=== PATIENT | male | born 1975 | race Caucasian/White ===

== ENCOUNTER 2016-10-18 01:56 | Emergency (ER) | payer OTHER ==
--- NOTE | 2016-10-18 05:49 | ED CLINICAL REPORT ---
Clinical Report - Physicians/Mid Levels [facility] [address] [place] [address] 10/18/2016 1:56 Patient: GRISELDA ALONZO Time Seen: 225 AM. Historian- patient and police. CPT: ER phys charges level 4 (#[id number]). HISTORY OF PRESENT ILLNESS Chief Complaint: Clear to book. ( Brought in by police after picked up for DUI. Pt has no injuries but is intoxicated.). This started just prior to arrival and is still present. At its maximum, severity described as moderate. When seen in the E.D., severity described as moderate. Modifying factors. Not worsened by anything. Not relieved by anything. No current or associated symptoms. Similar symptoms previously: Recent medical care: Not recently seen/assessed. REVIEW OF SYSTEMS No fever, cough, difficulty breathing, chest pain or abdominal pain. No nausea, vomiting, diarrhea, black stools or bloody stools. No chills, skin rash, headache or blackouts. He has had difficulty with ambulation. All systems otherwise negative, except as recorded above. PAST HISTORY Alcoholism: Has been to [place] detox in the past. Denies other PMH. Additional Surgeries: no known surgeries. Medications: Gabapentin Oral. Allergies: Sulfa Antibiotics. SOCIAL HISTORY Heavy tobacco smoker (cigarette)- 1 pack per day. Regular heavy alcohol use. ADDITIONAL NOTES The nursing notes have been reviewed. PHYSICAL EXAM Vital Signs: 10/18/2016 01:55 BP: 144/115. HR: 120. RR: 16. O2 saturation: 94%. Temp: 98.8 F. Pain level now: 9/10. Appearance: Alert. (AOB). Eyes: Eyes normal inspection. ENT: Pharynx normal. Neck: Normal inspection. CVS: Normal heart rate and rhythm. Heart sounds normal. Pulses normal. Respiratory: No respiratory distress. Breath sounds normal. Chest nontender. Neuro: Oriented X 3. No motor deficit. No sensory deficit. (Ataxia). LABS, X-RAYS, AND EKG Laboratory Tests: CBC w Diff: (CIRILO: 10/18/2016 02:30) ( MsgRcvd 10/18/2016 02:51) Final results Test Result Flag Units (Reference) WHITE BLOOD COUNT 5.4 K/uL (4.5-11.5) RED BLOOD COUNT 5.24 M/uL (4.50-5.90) HEMOGLOBIN 15.9 gm/dL (13.5-17.5) HEMATOCRIT 47.4 % (41.0-53.0) MEAN CELL VOLUME 91 fL (80-100) MEAN CORPUSCULAR HGB 30 pg (26-34) MEAN CORPUSCULAR HGB CONC 34 g/dL (31-37) RED CELL DISTRIBUTION WIDTH 13.6 % (11.6-14.8) PLATELET COUNT 87 L K/uL (150-400) NEUTROPHIL % 70.6 % (50-75) LYMPH % 22.1 L % (25-40) MONO % 6.5 % (3-14) EOSINOPHIL % 0.5 % (0-4) BASOPHIL % 0.3 % (0-2) CHEM 13 PANEL: (CIRILO: 10/18/2016 02:30) ( MsgRcvd 10/18/2016 03:05) Final results Test Result Flag Units (Reference) GLUCOSE 91 mg/dL (70-110) BUN 4 L mg/dL (7-18) CREATININE 0.8 mg/dL (0.6-1.3) Estimated GFR >60 mL/min Estimated GFR- >60 mL/min Note: Persistent reduction over 3 months in eGFR<60 mL/min/1.73 m2 defines CKD. Patients with eGFR values>=60 mL/min/1.73 m2 may also have CKD if evidence ofpersistent proteinuria. Additional information may be foundat www.kidney.org. SODIUM 134 L mmol/L (136-145) POTASSIUM 3.0 L mmol/L (3.5-5.1) CHLORIDE 94 L mmol/L (98-107) CARBON DIOXIDE 27 mmol/L (21-32) CALCIUM 9.1 mg/dL (8.5-10.1) TOTAL PROTEIN 7.9 g/dL (6.4-8.2) ALBUMIN 4.2 g/dL (3.3-5.0) BILIRUBIN, TOTAL 0.8 mg/dL (0.0-1.0) ALKALINE PHOSPHATASE 108 U/L (46-116) AST (SGOT) 122 H U/L (15-37) ALT (SGPT) 252 H U/L (12-78) MAGNESIUM 1.4 L mg/dL (1.8-2.4) CPK 223 U/L (24-260) TROPONIN I <0.05 ng/mL (0.00-1.5) TROPONIN REFERENCE RANGE:<0.1 NEGATIVE0.1-1.5 INDETERMINANT>1.5 POSITIVE Ethyl Alcohol: (CIRILO: 10/18/2016 02:30) ( MsgRcvd 10/18/2016 03:02) Final results Test Result Flag Units (Reference) ETHYL ALCOHOL 279 H mg/dL (3-10) . PROGRESS AND PROCEDURES Course of Care: banana bag 1 liter with 100 mg thiamine Magnesium 2g IV KCL 40 meq po Pt alcohol level 279 but pt alert and oriented times 3. Appears to have tolerance. Has some ataxia but not drammatic. Patient/family counseled. Disposition: Discharged. Condition: stable. CLINICAL IMPRESSION Alcohol intoxication with potential for withdrawal. Chronic alcoholism Hypokalemia Hypomagnesemia. INSTRUCTIONS (You are medically cleared to book into assisted. Wear clonidine patch until withdrawal better. It is good for a week.). Warnings: Further evaluation is necessary. Your Current Medications: CONTINUE TAKING THE FOLLOWING MEDICATIONS: Gabapentin Oral. Prescription Medications: Ativan 1 mg: take 1-2 orally every 4 hours as needed. Dispense twenty (20). No refill. Substitution is permissible. (for withdrawal symptoms.) KCL 20 meq q day for 3 days. Follow-up: Follow up with your doctor in one week. Call for an appointment. Understanding of the discharge instructions verbalized by patient. Discharge instructions reviewed (Police). (Electronically signed by Osmin Sabillon MD 10/22/2016 0:21)
--- NOTE | 2016-10-18 05:49 | ED ORDER SUMMARY ---
..... Patient: GRISELDA ALONZO OrderSheet [facility] VisitID: [id number] [address] [place] [address] 41y, M Registration Date/Time: 10/18/2016 ORDER SHEET Weight: 83.9 kg (stated) Allergies: Sulfa Antibiotics GENERAL ORDERS: Ethyl Alcohol Urgent (02:20 10/18/2016 Suyapa Cadet verbal order read back to Vira TENORIO) (Ack 2:28 Vinayak) (3:36 Clares R.N.) Cardiac Panel Stat (02:29 10/18/2016 Vira TENORIO) (Ack 2:39 Vinayak) (3:36 Qing R.N.) Magnesium Urgent (03:37 10/18/2016 Qing Pandya.N. verbal order read back to Vira TENORIO) (Cancelled: Wrong Order3:38 Qnig R.N.) MEDICATION ORDERS: KCl PO 40 meq (NOW) (03:42 10/18/2016 Vira TENORIO) (4:11 Qing R.N.) Clonidine Topical 0.2 mg (NOW) (03:42 10/18/2016 Vira TENORIO) (4:11 Qing R.N.) IV FLUIDS: IV NS with Normal Saline 1 Liter, Multivitamin Concentrate Intravenous 1 amp/L, Thiamine HCl 100 mg/L: initial bolus 1000 mL (1000 mL/hr), then none - for X1 (NOW); Routine (02:29 10/18/2016 Vira TENORIO) (3:36 DDdaniels R.N.) Magnesium Sulfate IV 2 gm/50mL (NOW, over 1 hour) (03:38 10/18/2016 Qing GuadalupeNAngela verbal order read back to Vira TENORIO) (3:39 Qing R.N.) ORDER SHEET NOTES: [Electronically signed by Balbir Willis R.N. (06:54 10/18/2016)] [Electronically signed by Osmin Sabillon MD (00:21 10/22/2016)] [Electronically locked/signed by Balbir Willis R.N. (06:54 10/18/2016)]
--- NOTE | 2016-10-18 05:49 | ED NURSING NOTES ---
Clinical Report - Nurses [facility] [address] [place] [address] 10/18/2016 1:56 [id number] Triage time 01:55 Oct 18 2016. Acuity: LEVEL 3. Chief Complaint: (CTB). Alert. KEN COMA SCORE: Ken Coma Scale: 15- eyes open spontaneously (4); best verbal response- oriented x 4 (5); best motor response- obeys commands (6). --04:12 Balbir Willis R.N. 01:55 10/18/16. BP: 144/115. HR: 120. RR: 16. O2 saturation: 94% on room air. Temp: 98.8 F (oral). Pain level now: 9/10. Additional comments: Bilat lower calf pain. --04:12 Balbir Willis R.N. Weight: 83.9 kg stated. Height/Length: 72 inches Per Patient. BMI: 25.1. --01:58 Balbir Willis R.N. Medications Gabapentin Oral. --01:58 Balbir Willis R.N. Medication/allergy information source: the patient. --04:12 Balbir Willis R.N. Allergies Sulfa Antibiotics. --01:58 Balbir Willis R.N. History Arrived by private vehicle. Historian: patient. Accompanied by (POLICE CUSTODY). ( [facility]). This started just prior to arrival and yesterday. 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 PAST MEDICAL HX: Immunizations: status is unknown. SURGERY HX: No history of previous surgery. SOCIAL HX: Heavy tobacco smoker (cigarette)- less than 1 pack per day. Alcohol use; consumes three liquor bottles. No drug use. No infectious disease exposure. ABUSE ASSESSMENT: No report of abuse. FALL RISK ASSESSMENT: Fall risk assessment completed. No fall risk identified. NUTRITIONAL RISK ASSESSMENT: The nutritional risk assessment revealed no deficiencies. FUNCTIONAL ASSESSMENT: Functional assessment: no impairments noted. LEARNING NEEDS ASSESSMENT: The learning needs assessment revealed no barriers. SKIN INTEGRITY ASSESSMENT: Skin integrity risk assessment completed. No skin integrity risk identified. --04:12 Balbir Willis R.N. PROBLEMS: DT's. --02:00 Balbir Willis R.N. Interventions ID band on patient. To treatment room. --04:12 Balbir Willis R.N. PHYSICAL ASSESSMENT Ambulatory to room. GENERAL / NEURO / PSYCH: Alert. Oriented X 4. HEENT: No facial asymmetry noted. RESPIRATORY: Respirations not labored. CVS: Cardiac rhythm: (Tachycardia). GI / : Abdomen soft. SKIN: Skin is warm and dry. Normal skin turgor. --02:08 Balbir Willis R.N. 04:12 10/18/16. BP: 125/72 (regular adult cuff) taken while sitting. --04:13 Rashel Triana R.N. NURSING PROGRESS NOTES Reassurance given. Patient identifiers checked. Call light placed in reach. Side rails up. Bed placed in lowest position. Brakes of bed on. Patient ready for evaluation- chart flagged and ED physician notified. --02:08 Balbir Willis R.N. 03:36 10/18/2016 Site #1 started via IV in the left antecubital space with an 20g angiocath; one attempt. Blood drawn: rainbow set. Labeled in the presence of the patient and sent to the lab. Saline lock flushed with saline. --03:36 Rashel Triana R.N. 03:36 10/18/2016 Started bag #1 1000 mL IV Fluids IV NS (Saline); at 1000 mL/hr over 1 hour(s) via site #1 via IV pump. Allergies verified and confirmed 5 rights. IV patency established site checked: no pain, redness, or swelling flushed thoroughly pre- and post-medication administration. --03:36 Rashel Triana R.N. 03:39 10/18/2016 Magnesium Sulfate (Magnesium Sulfate in D5W) IVP 2 gm given over 1 hour(s) via site #1. Allergies verified and confirmed 5 rights. IV patency established. IV site checked: no pain, redness, or swelling. IV flushed thoroughly pre- and post-medication administration. --03:39 Rashel Triana R.N. 04:01 10/18/2016 KCL (Potassium Chloride ER) PO Tablets 40 meq given. Allergies verified and confirmed 5 rights. --04:11 Rashel Triana R.N. 04:11 10/18/2016 Clonidine Topical Patch/Pad 0.2 mg. Applied to the left upper arm. Allergies verified and confirmed 5 rights. --04:11 Rashel Triana R.N. 05:00 10/18/2016 IV Fluids IV NS Discontinued: bag #1 infused upon transfer. Total amount infused: 1000 mL. IV patency established. IV site checked: no pain, redness, or swelling. IV flushed thoroughly. --06:35 Balbir Willis R.N. 05:00. ( Magnesium 2 Gm IVPB infused/completed.). --06:38 Balbir Willis R.N. DISPOSITION / DISCHARGE 05:20 10/18/16. BP: 136/67. HR: 88. RR: 16. O2 saturation: 95% on room air. Temp: 98.6 F (oral). Pain level now: 5/10. Additional comments: Bilat calf pain. --06:13 Balbir Willis R.N. Departure time: 0525. --06:13 Balbir Willis R.N. 05:25. Condition at departure: improved. No learning barriers present. Discharge instructions provided and reviewed with the patient. Reviewed medication(s) (prescription given to police investigator). Reviewed referral to family practice for followup. Patient verbalized understanding. Written instructions provided in Guinean. The patient was discharged by the physician. He was accompanied by spouse and discharged to police department facility. He left the Emergency Department ambulatory and via police department vehicle. Driving (police). --06:16 Balbir Willis R.N. Locked/Released at 10/18/2016 6:54 by Balbir Willis R.N.
--- NOTE | 2016-10-18 05:49 | ED ORDER SUMMARY ---
..... Patient: GRISELDA ALONZO OrderSheet [facility] VisitID: [id number] [address] [place] [address] 41y, M Registration Date/Time: 10/18/2016 ORDER SHEET Weight: 83.9 kg (stated) Allergies: Sulfa Antibiotics GENERAL ORDERS: Ethyl Alcohol Urgent (02:20 10/18/2016 Suyapa Cadet verbal order read back to Vira TENORIO) (Ack 2:28 Vinayak) (3:36 Clares R.N.) Cardiac Panel Stat (02:29 10/18/2016 Vira TENORIO) (Ack 2:39 Vinayak) (3:36 Qing R.N.) Magnesium Urgent (03:37 10/18/2016 Qing Pandya.N. verbal order read back to Vira TENORIO) (Cancelled: Wrong Order3:38 Qing R.N.) MEDICATION ORDERS: KCl PO 40 meq (NOW) (03:42 10/18/2016 iVra TENORIO) (4:11 Qing R.N.) Clonidine Topical 0.2 mg (NOW) (03:42 10/18/2016 Vira TENORIO) (4:11 Qing R.N.) IV FLUIDS: IV NS with Normal Saline 1 Liter, Multivitamin Concentrate Intravenous 1 amp/L, Thiamine HCl 100 mg/L: initial bolus 1000 mL (1000 mL/hr), then none - for X1 (NOW); Routine (02:29 10/18/2016 Vira TENORIO) (3:36 DDdaniels R.N.) Magnesium Sulfate IV 2 gm/50mL (NOW, over 1 hour) (03:38 10/18/2016 Qing GuadalupeNAngela verbal order read back to Vira TENORIO) (3:39 Qing R.N.) ORDER SHEET NOTES: [Electronically signed by Balbir Willis R.N. (06:54 10/18/2016)] [Electronically signed by Osmin Sabillon MD (00:21 10/22/2016)] [Electronically locked/signed by Balbir Willis R.N. (06:54 10/18/2016)]
--- NOTE | 2016-10-18 05:49 | ED CLINICAL REPORT ---
Clinical Report - Physicians/Mid Levels [facility] [address] [place] [address] 10/18/2016 1:56 Patient: GRISELDA ALONZO Time Seen: 225 AM. Historian- patient and police. CPT: ER phys charges level 4 (#[id number]). HISTORY OF PRESENT ILLNESS Chief Complaint: Clear to book. ( Brought in by police after picked up for DUI. Pt has no injuries but is intoxicated.). This started just prior to arrival and is still present. At its maximum, severity described as moderate. When seen in the E.D., severity described as moderate. Modifying factors. Not worsened by anything. Not relieved by anything. No current or associated symptoms. Similar symptoms previously: Recent medical care: Not recently seen/assessed. REVIEW OF SYSTEMS No fever, cough, difficulty breathing, chest pain or abdominal pain. No nausea, vomiting, diarrhea, black stools or bloody stools. No chills, skin rash, headache or blackouts. He has had difficulty with ambulation. All systems otherwise negative, except as recorded above. PAST HISTORY Alcoholism: Has been to [place] detox in the past. Denies other PMH. Additional Surgeries: no known surgeries. Medications: Gabapentin Oral. Allergies: Sulfa Antibiotics. SOCIAL HISTORY Heavy tobacco smoker (cigarette)- 1 pack per day. Regular heavy alcohol use. ADDITIONAL NOTES The nursing notes have been reviewed. PHYSICAL EXAM Vital Signs: 10/18/2016 01:55 BP: 144/115. HR: 120. RR: 16. O2 saturation: 94%. Temp: 98.8 F. Pain level now: 9/10. Appearance: Alert. (AOB). Eyes: Eyes normal inspection. ENT: Pharynx normal. Neck: Normal inspection. CVS: Normal heart rate and rhythm. Heart sounds normal. Pulses normal. Respiratory: No respiratory distress. Breath sounds normal. Chest nontender. Neuro: Oriented X 3. No motor deficit. No sensory deficit. (Ataxia). LABS, X-RAYS, AND EKG Laboratory Tests: CBC w Diff: (CIRILO: 10/18/2016 02:30) ( MsgRcvd 10/18/2016 02:51) Final results Test Result Flag Units (Reference) WHITE BLOOD COUNT 5.4 K/uL (4.5-11.5) RED BLOOD COUNT 5.24 M/uL (4.50-5.90) HEMOGLOBIN 15.9 gm/dL (13.5-17.5) HEMATOCRIT 47.4 % (41.0-53.0) MEAN CELL VOLUME 91 fL (80-100) MEAN CORPUSCULAR HGB 30 pg (26-34) MEAN CORPUSCULAR HGB CONC 34 g/dL (31-37) RED CELL DISTRIBUTION WIDTH 13.6 % (11.6-14.8) PLATELET COUNT 87 L K/uL (150-400) NEUTROPHIL % 70.6 % (50-75) LYMPH % 22.1 L % (25-40) MONO % 6.5 % (3-14) EOSINOPHIL % 0.5 % (0-4) BASOPHIL % 0.3 % (0-2) CHEM 13 PANEL: (CIRILO: 10/18/2016 02:30) ( MsgRcvd 10/18/2016 03:05) Final results Test Result Flag Units (Reference) GLUCOSE 91 mg/dL (70-110) BUN 4 L mg/dL (7-18) CREATININE 0.8 mg/dL (0.6-1.3) Estimated GFR >60 mL/min Estimated GFR- >60 mL/min Note: Persistent reduction over 3 months in eGFR<60 mL/min/1.73 m2 defines CKD. Patients with eGFR values>=60 mL/min/1.73 m2 may also have CKD if evidence ofpersistent proteinuria. Additional information may be foundat www.kidney.org. SODIUM 134 L mmol/L (136-145) POTASSIUM 3.0 L mmol/L (3.5-5.1) CHLORIDE 94 L mmol/L (98-107) CARBON DIOXIDE 27 mmol/L (21-32) CALCIUM 9.1 mg/dL (8.5-10.1) TOTAL PROTEIN 7.9 g/dL (6.4-8.2) ALBUMIN 4.2 g/dL (3.3-5.0) BILIRUBIN, TOTAL 0.8 mg/dL (0.0-1.0) ALKALINE PHOSPHATASE 108 U/L (46-116) AST (SGOT) 122 H U/L (15-37) ALT (SGPT) 252 H U/L (12-78) MAGNESIUM 1.4 L mg/dL (1.8-2.4) CPK 223 U/L (24-260) TROPONIN I <0.05 ng/mL (0.00-1.5) TROPONIN REFERENCE RANGE:<0.1 NEGATIVE0.1-1.5 INDETERMINANT>1.5 POSITIVE Ethyl Alcohol: (CIRILO: 10/18/2016 02:30) ( MsgRcvd 10/18/2016 03:02) Final results Test Result Flag Units (Reference) ETHYL ALCOHOL 279 H mg/dL (3-10) . PROGRESS AND PROCEDURES Course of Care: banana bag 1 liter with 100 mg thiamine Magnesium 2g IV KCL 40 meq po Pt alcohol level 279 but pt alert and oriented times 3. Appears to have tolerance. Has some ataxia but not drammatic. Patient/family counseled. Disposition: Discharged. Condition: stable. CLINICAL IMPRESSION Alcohol intoxication with potential for withdrawal. Chronic alcoholism Hypokalemia Hypomagnesemia. INSTRUCTIONS (You are medically cleared to book into skilled nursing. Wear clonidine patch until withdrawal better. It is good for a week.). Warnings: Further evaluation is necessary. Your Current Medications: CONTINUE TAKING THE FOLLOWING MEDICATIONS: Gabapentin Oral. Prescription Medications: Ativan 1 mg: take 1-2 orally every 4 hours as needed. Dispense twenty (20). No refill. Substitution is permissible. (for withdrawal symptoms.) KCL 20 meq q day for 3 days. Follow-up: Follow up with your doctor in one week. Call for an appointment. Understanding of the discharge instructions verbalized by patient. Discharge instructions reviewed (Police). (Electronically signed by Osmin Sabillon MD 10/22/2016 0:21)
--- NOTE | 2016-10-18 05:49 | ED NURSING NOTES ---
Clinical Report - Nurses [facility] [address] [place] [address] 10/18/2016 1:56 [id number] Triage time 01:55 Oct 18 2016. Acuity: LEVEL 3. Chief Complaint: (CTB). Alert. KEN COMA SCORE: Ken Coma Scale: 15- eyes open spontaneously (4); best verbal response- oriented x 4 (5); best motor response- obeys commands (6). --04:12 Balbir Willis R.N. 01:55 10/18/16. BP: 144/115. HR: 120. RR: 16. O2 saturation: 94% on room air. Temp: 98.8 F (oral). Pain level now: 9/10. Additional comments: Bilat lower calf pain. --04:12 Balbir Willis R.N. Weight: 83.9 kg stated. Height/Length: 72 inches Per Patient. BMI: 25.1. --01:58 Balbir Willis R.N. Medications Gabapentin Oral. --01:58 Balbir Willis R.N. Medication/allergy information source: the patient. --04:12 Balbir Willis R.N. Allergies Sulfa Antibiotics. --01:58 Balbir Willis R.N. History Arrived by private vehicle. Historian: patient. Accompanied by (POLICE CUSTODY). ( [facility]). This started just prior to arrival and yesterday. 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 PAST MEDICAL HX: Immunizations: status is unknown. SURGERY HX: No history of previous surgery. SOCIAL HX: Heavy tobacco smoker (cigarette)- less than 1 pack per day. Alcohol use; consumes three liquor bottles. No drug use. No infectious disease exposure. ABUSE ASSESSMENT: No report of abuse. FALL RISK ASSESSMENT: Fall risk assessment completed. No fall risk identified. NUTRITIONAL RISK ASSESSMENT: The nutritional risk assessment revealed no deficiencies. FUNCTIONAL ASSESSMENT: Functional assessment: no impairments noted. LEARNING NEEDS ASSESSMENT: The learning needs assessment revealed no barriers. SKIN INTEGRITY ASSESSMENT: Skin integrity risk assessment completed. No skin integrity risk identified. --04:12 Balbir Willis R.N. PROBLEMS: DT's. --02:00 Balbir Willis R.N. Interventions ID band on patient. To treatment room. --04:12 Balbir Willis R.N. PHYSICAL ASSESSMENT Ambulatory to room. GENERAL / NEURO / PSYCH: Alert. Oriented X 4. HEENT: No facial asymmetry noted. RESPIRATORY: Respirations not labored. CVS: Cardiac rhythm: (Tachycardia). GI / : Abdomen soft. SKIN: Skin is warm and dry. Normal skin turgor. --02:08 Balbir Willis R.N. 04:12 10/18/16. BP: 125/72 (regular adult cuff) taken while sitting. --04:13 Rashel Triana R.N. NURSING PROGRESS NOTES Reassurance given. Patient identifiers checked. Call light placed in reach. Side rails up. Bed placed in lowest position. Brakes of bed on. Patient ready for evaluation- chart flagged and ED physician notified. --02:08 Balbir Willis R.N. 03:36 10/18/2016 Site #1 started via IV in the left antecubital space with an 20g angiocath; one attempt. Blood drawn: rainbow set. Labeled in the presence of the patient and sent to the lab. Saline lock flushed with saline. --03:36 Rashel Triana R.N. 03:36 10/18/2016 Started bag #1 1000 mL IV Fluids IV NS (Saline); at 1000 mL/hr over 1 hour(s) via site #1 via IV pump. Allergies verified and confirmed 5 rights. IV patency established site checked: no pain, redness, or swelling flushed thoroughly pre- and post-medication administration. --03:36 Rashel Triana R.N. 03:39 10/18/2016 Magnesium Sulfate (Magnesium Sulfate in D5W) IVP 2 gm given over 1 hour(s) via site #1. Allergies verified and confirmed 5 rights. IV patency established. IV site checked: no pain, redness, or swelling. IV flushed thoroughly pre- and post-medication administration. --03:39 Rashel Triana R.N. 04:01 10/18/2016 KCL (Potassium Chloride ER) PO Tablets 40 meq given. Allergies verified and confirmed 5 rights. --04:11 Rashel Triana R.N. 04:11 10/18/2016 Clonidine Topical Patch/Pad 0.2 mg. Applied to the left upper arm. Allergies verified and confirmed 5 rights. --04:11 Rashel Triana R.N. 05:00 10/18/2016 IV Fluids IV NS Discontinued: bag #1 infused upon transfer. Total amount infused: 1000 mL. IV patency established. IV site checked: no pain, redness, or swelling. IV flushed thoroughly. --06:35 Balbir Willis R.N. 05:00. ( Magnesium 2 Gm IVPB infused/completed.). --06:38 Balbir Willis R.N. DISPOSITION / DISCHARGE 05:20 10/18/16. BP: 136/67. HR: 88. RR: 16. O2 saturation: 95% on room air. Temp: 98.6 F (oral). Pain level now: 5/10. Additional comments: Bilat calf pain. --06:13 Balbir Willis R.N. Departure time: 0525. --06:13 Balbir Willis R.N. 05:25. Condition at departure: improved. No learning barriers present. Discharge instructions provided and reviewed with the patient. Reviewed medication(s) (prescription given to [place] police lieutenant). Reviewed referral to family practice for followup. Patient verbalized understanding. Written instructions provided in Ecuadorean. The patient was discharged by the physician. He was accompanied by spouse and discharged to police department facility. He left the Emergency Department ambulatory and via police department vehicle. Driving (police). --06:16 Balbir Willis R.N. Locked/Released at 10/18/2016 6:54 by Balbir Willis R.N.
--- NOTE | 2016-10-22 00:21 | ED MAR SUMMARY ---
..... Medication Administration Record [facility] [address] [place] [address] Patient: GRISELDA ALONZO Visit ID: [id number] 41y, M Weight: 83.9 kg Height/Length: 72 in BMI: 25.1 ALLERGIES: Sulfa Antibiotics Start 03:36 10/18/2016 Rashel Triana R.N., Stop 05:00 10/18/2016 Balbir Willis R.N. Medication Administered: IV NS (SALINE), Dose: IV Fluids over 1 hour(s), Rate: 1000 mL/hr, Dispensed: 1000 mL bag, Site: #1 left AC. Medication Ordered: IV NS with Normal Saline 1 Liter, Multivitamin Concentrate Intravenous 1 amp/L, Thiamine HCl 100 mg/L: initial bolus 1000 mL (1000 mL/hr), then none - for X1 (NOW); Routine. Given 03:39 10/18/2016 Rashel Triana R.N. Medication Administered: MAGNESIUM SULFATE [IVP] (MAGNESIUM SULFATE IN D5W), Dose: 2 gm IVP over 1 hour(s), Site: #1 left AC. Medication Ordered: Magnesium Sulfate IV 2 gm/50mL (NOW, over 1 hour). Given 04:01 10/18/2016 Rashel Triana R.N. Medication Administered: KCL [PO] (POTASSIUM CHLORIDE ER), Dose: 40 meq Tablets PO. Medication Ordered: KCl PO 40 meq (NOW). Given 04:11 10/18/2016 Rashel Triana R.N. Medication Administered: CLONIDINE [TOPICAL], Dose: 0.2 mg Patch/Pad Topical. Medication Ordered: Clonidine Topical 0.2 mg (NOW).
--- NOTE | 2016-10-22 00:21 | ED MAR SUMMARY ---
..... Medication Administration Record [facility] [address] [place] [address] Patient: GRISELDA ALONZO Visit ID: [id number] 41y, M Weight: 83.9 kg Height/Length: 72 in BMI: 25.1 ALLERGIES: Sulfa Antibiotics Start 03:36 10/18/2016 Rashel Triana R.N., Stop 05:00 10/18/2016 Balbir Willis R.N. Medication Administered: IV NS (SALINE), Dose: IV Fluids over 1 hour(s), Rate: 1000 mL/hr, Dispensed: 1000 mL bag, Site: #1 left AC. Medication Ordered: IV NS with Normal Saline 1 Liter, Multivitamin Concentrate Intravenous 1 amp/L, Thiamine HCl 100 mg/L: initial bolus 1000 mL (1000 mL/hr), then none - for X1 (NOW); Routine. Given 03:39 10/18/2016 Rashel Triana R.N. Medication Administered: MAGNESIUM SULFATE [IVP] (MAGNESIUM SULFATE IN D5W), Dose: 2 gm IVP over 1 hour(s), Site: #1 left AC. Medication Ordered: Magnesium Sulfate IV 2 gm/50mL (NOW, over 1 hour). Given 04:01 10/18/2016 Rashel Triana R.N. Medication Administered: KCL [PO] (POTASSIUM CHLORIDE ER), Dose: 40 meq Tablets PO. Medication Ordered: KCl PO 40 meq (NOW). Given 04:11 10/18/2016 Rashel Triana R.N. Medication Administered: CLONIDINE [TOPICAL], Dose: 0.2 mg Patch/Pad Topical. Medication Ordered: Clonidine Topical 0.2 mg (NOW).
--- NOTE | 2016-10-22 00:21 | ED DISCHARGE INSTRUCTIONS ---
Patient: GRISELDA ALONZO General Instructions [facility] VisitID: [id number] [address] [place] [address] 41y, M Registration Date/Time: 10/18/2016 Alcohol intoxication with potential for withdrawal. Chronic alcoholism Hypokalemia Hypomagnesemia. INSTRUCTIONS (You are medically cleared to book into alf. Wear clonidine patch until withdrawal better. It is good for a week.). Warnings: Further evaluation is necessary. Your Current Medications: CONTINUE TAKING THE FOLLOWING MEDICATIONS: Gabapentin Oral. Prescription Medications: Ativan 1 mg: take 1-2 orally every 4 hours as needed. Dispense twenty (20). No refill. Substitution is permissible. (for withdrawal symptoms.) KCL 20 meq q day for 3 days. Follow-up: Follow up with your doctor in one week. Call for an appointment. Understanding of the discharge instructions verbalized by patient. Discharge instructions reviewed (Police). ADDITIONAL INFORMATION Lorazepam Oral tablet What is this medicine? LORAZEPAM (suzie A ze shabbir) is a benzodiazepine. It is used to treat anxiety. How should I use this medicine? Take this medicine by mouth with a glass of water. Follow the directions on the prescription label. If it upsets your stomach, take it with food or milk. Take your medicine at regular intervals. Do not take it more often than directed. Do not stop taking except on the advice of your doctor or health customer care representative. Talk to your barrel header regarding the use of this medicine in children. Special care may be needed. What side effects may I notice from receiving this medicine? Side effects that you should report to your doctor or health customer care representative as soon as possible: changes in vision confusion depression mood changes, excitability or aggressive behavior movement difficulty, staggering or jerky movements muscle cramps restlessness weakness or tiredness Side effects that usually do not require medical attention (report to your doctor or health customer care representative if they continue or are bothersome): constipation or diarrhea difficulty sleeping, nightmares dizziness, drowsiness headache nausea, vomiting What may interact with this medicine? barbiturate medicines for inducing sleep or treating seizures, like phenobarbital clozapine medicines for depression, mental problems or psychiatric disturbances medicines for sleep phenytoin probenecid theophylline valproic acid What if I miss a dose? If you miss a dose, take it as soon as you can. If it is almost time for your next dose, take only that dose. Do not take double or extra doses. Where should I keep my medicine? Keep out of the reach of children. This medicine can be abused. Keep your medicine in a safe place to protect it from theft. Do not share this medicine with anyone. Selling or giving away this medicine is dangerous and against the law. Store at room temperature between 20 and 25 degrees C (68 and 77 degrees F). Protect from light. Keep container tightly closed. Throw away any unused medicine after the expiration date. What should I tell my health care provider before I take this medicine? They need to know if you have any of these conditions: alcohol or drug abuse problem bipolar disorder, depression, psychosis or other mental health condition glaucoma kidney or liver disease lung disease or breathing difficulties myasthenia gravis Parkinson's disease seizures or a history of seizures suicidal thoughts an unusual or allergic reaction to lorazepam, other benzodiazepines, foods, dyes, or preservatives or trying to get breast-feeding What should I watch for while using this medicine? Visit your doctor or health customer care representative for regular checks on your progress. Your body may become dependent on this medicine, ask your doctor or health customer care representative if you still need to take it. However, if you have been taking this medicine regularly for some time, do not suddenly stop taking it. You must gradually reduce the dose or you may get severe side effects. Ask your doctor or health customer care representative for advice before increasing or decreasing the dose. Even after you stop taking this medicine it can still affect your body for several days. You may get drowsy or dizzy. Do not drive, use machinery, or do anything that needs mental alertness until you know how this medicine affects you. To reduce the risk of dizzy and fainting spells, do not stand or sit up quickly, especially if you are an older patient. Alcohol may increase dizziness and drowsiness. Avoid alcoholic drinks. Do not treat yourself for coughs, colds or allergies without asking your doctor or health customer care representative for advice. Some ingredients can increase possible side effects. You have been given the following additional information: Lorazepam Oral tablet (Electronically signed by Osmin Sabillon MD 10/22/2016 0:21)
--- NOTE | 2016-10-22 00:21 | ED MED RECONCILIATION SUMMARY ---
Patient: GRISELDA ALONZO Medication Reconciliation Report [facility] VisitID: [id number] [address] [place] [address] 41y, M Registration Date/Time: 10/18/2016 Weight: 83.9 kg Height/Length: 72 in. BMI: 25.1 ALLERGIES: Sulfa Antibiotics The patient's Home Medications are listed below: CONTINUE TAKING THE FOLLOWING MEDICATIONS: Gabapentin Oral The source(s) of the original Home Medication information: patient The following Medications were given to the patient in the Emergency Department: IV NS IV Fluids bolus 0, then 1000 mL/hr, administered: 10/18/2016 3:36:00 AM Magnesium Sulfate [IVP] IVP 2 gm, administered: 10/18/2016 3:39:00 AM KCL [PO] PO 40 meq, administered: 10/18/2016 4:01:00 AM Clonidine [Topical] Topical 0.2 mg, administered: 10/18/2016 4:11:00 AM The following Medications were prescribed to the patient: KCL 20 meq q day for 3 days. -- Osmin Sabillon MD Ativan 1 mg: take 1-2 orally every 4 hours as needed. Dispense twenty (20). No refill. Substitution is permissible.(for withdrawal symptoms.) -- Osmin Sabillon MD
--- NOTE | 2016-10-22 00:21 | ED MED RECONCILIATION SUMMARY ---
Patient: GRISELDA ALONZO Medication Reconciliation Report [facility] VisitID: [id number] [address] [place] [address] 41y, M Registration Date/Time: 10/18/2016 Weight: 83.9 kg Height/Length: 72 in. BMI: 25.1 ALLERGIES: Sulfa Antibiotics The patient's Home Medications are listed below: CONTINUE TAKING THE FOLLOWING MEDICATIONS: Gabapentin Oral The source(s) of the original Home Medication information: patient The following Medications were given to the patient in the Emergency Department: IV NS IV Fluids bolus 0, then 1000 mL/hr, administered: 10/18/2016 3:36:00 AM Magnesium Sulfate [IVP] IVP 2 gm, administered: 10/18/2016 3:39:00 AM KCL [PO] PO 40 meq, administered: 10/18/2016 4:01:00 AM Clonidine [Topical] Topical 0.2 mg, administered: 10/18/2016 4:11:00 AM The following Medications were prescribed to the patient: KCL 20 meq q day for 3 days. -- Osmin Sabillon MD Ativan 1 mg: take 1-2 orally every 4 hours as needed. Dispense twenty (20). No refill. Substitution is permissible.(for withdrawal symptoms.) -- Osmin Sabillon MD
--- NOTE | 2016-10-22 00:21 | ED DISCHARGE INSTRUCTIONS ---
Patient: GRISELDA ALONZO General Instructions [facility] VisitID: [id number] [address] [place] [address] 41y, M Registration Date/Time: 10/18/2016 Alcohol intoxication with potential for withdrawal. Chronic alcoholism Hypokalemia Hypomagnesemia. INSTRUCTIONS (You are medically cleared to book into [facility]. Wear clonidine patch until withdrawal better. It is good for a week.). Warnings: Further evaluation is necessary. Your Current Medications: CONTINUE TAKING THE FOLLOWING MEDICATIONS: Gabapentin Oral. Prescription Medications: Ativan 1 mg: take 1-2 orally every 4 hours as needed. Dispense twenty (20). No refill. Substitution is permissible. (for withdrawal symptoms.) KCL 20 meq q day for 3 days. Follow-up: Follow up with your doctor in one week. Call for an appointment. Understanding of the discharge instructions verbalized by patient. Discharge instructions reviewed (Police). ADDITIONAL INFORMATION Lorazepam Oral tablet What is this medicine? LORAZEPAM (suzie A ze shabbir) is a benzodiazepine. It is used to treat anxiety. How should I use this medicine? Take this medicine by mouth with a glass of water. Follow the directions on the prescription label. If it upsets your stomach, take it with food or milk. Take your medicine at regular intervals. Do not take it more often than directed. Do not stop taking except on the advice of your doctor or health account executive healthcare. Talk to your electric train driver regarding the use of this medicine in children. Special care may be needed. What side effects may I notice from receiving this medicine? Side effects that you should report to your doctor or health account executive healthcare as soon as possible: changes in vision confusion depression mood changes, excitability or aggressive behavior movement difficulty, staggering or jerky movements muscle cramps restlessness weakness or tiredness Side effects that usually do not require medical attention (report to your doctor or health account executive healthcare if they continue or are bothersome): constipation or diarrhea difficulty sleeping, nightmares dizziness, drowsiness headache nausea, vomiting What may interact with this medicine? barbiturate medicines for inducing sleep or treating seizures, like phenobarbital clozapine medicines for depression, mental problems or psychiatric disturbances medicines for sleep phenytoin probenecid theophylline valproic acid What if I miss a dose? If you miss a dose, take it as soon as you can. If it is almost time for your next dose, take only that dose. Do not take double or extra doses. Where should I keep my medicine? Keep out of the reach of children. This medicine can be abused. Keep your medicine in a safe place to protect it from theft. Do not share this medicine with anyone. Selling or giving away this medicine is dangerous and against the law. Store at room temperature between 20 and 25 degrees C (68 and 77 degrees F). Protect from light. Keep container tightly closed. Throw away any unused medicine after the expiration date. What should I tell my health care provider before I take this medicine? They need to know if you have any of these conditions: alcohol or drug abuse problem bipolar disorder, depression, psychosis or other mental health condition glaucoma kidney or liver disease lung disease or breathing difficulties myasthenia gravis Parkinson's disease seizures or a history of seizures suicidal thoughts an unusual or allergic reaction to lorazepam, other benzodiazepines, foods, dyes, or preservatives or trying to get breast-feeding What should I watch for while using this medicine? Visit your doctor or health account executive healthcare for regular checks on your progress. Your body may become dependent on this medicine, ask your doctor or health account executive healthcare if you still need to take it. However, if you have been taking this medicine regularly for some time, do not suddenly stop taking it. You must gradually reduce the dose or you may get severe side effects. Ask your doctor or health account executive healthcare for advice before increasing or decreasing the dose. Even after you stop taking this medicine it can still affect your body for several days. You may get drowsy or dizzy. Do not drive, use machinery, or do anything that needs mental alertness until you know how this medicine affects you. To reduce the risk of dizzy and fainting spells, do not stand or sit up quickly, especially if you are an older patient. Alcohol may increase dizziness and drowsiness. Avoid alcoholic drinks. Do not treat yourself for coughs, colds or allergies without asking your doctor or health account executive healthcare for advice. Some ingredients can increase possible side effects. You have been given the following additional information: Lorazepam Oral tablet (Electronically signed by Osmin Sabillon MD 10/22/2016 0:21)
== END 2016-10-18 05:25 ==
LOC: ED SRH 01:56
DX: F10.229 Alcohol dependence with intoxication, unspecified (principal); E87.6 Hypokalemia; E83.42 Hypomagnesemia; Y90.8 Blood alcohol level of 240 mg/100 ml or more; F17.210 Nicotine dependence, cigarettes, uncomplicated; Z79.899 Other long term (current) drug therapy; Z88.2 Allergy status to sulfonamides
CPT/HCPCS: 90074; 90100; 90616; 92010; 92610; 92720; 95059